=== PATIENT | female | born 2000 | race Caucasian/White ===

== ENCOUNTER 2021-02-02 05:56 | Emergency (ER) | payer OTHER ==
[~2021-02-02] VITALS: Ht 157.4 cm; Wt 124.7 kg
== END 2021-02-02 08:56 | disposition home or self-care (01) ==
LOC: ED 05:56
DX: R07.9 Chest pain, unspecified (principal); M54.2 Cervicalgia; M25.561 Pain in right knee; M25.562 Pain in left knee; F17.200 Nicotine dependence, unspecified, uncomplicated; V89.2XXA Person injured in unspecified motor-vehicle accident, traffic, initial encounter; Y93.89 Activity, other specified; Y92.89 Other specified places as the place of occurrence of the external cause; Y99.8 Other external cause status

== ENCOUNTER 2023-01-13 16:48 | Emergency (ER) | payer BC | END 2023-01-13 19:04 | disposition home or self-care (01) | LOC: ED 16:48 | DX: B34.9 Viral infection, unspecified (principal); Z20.822 Contact with and (suspected) exposure to COVID-19 ==